=== PATIENT | male | born 1970 | race Caucasian/White ===

== ENCOUNTER → 2019-07-27 | Outpatient (CLI) | payer BC, SELFPAY | END | disposition home or self-care (01) | LOC: LABSPEC 16:23 | PROVIDERS: Referring Provider Otolaryngology; Visit Provider Otolaryngology | DX: J39.1 Other abscess of pharynx (principal) | CPT/HCPCS: 87070 ==

== ENCOUNTER → 2022-07-05 | Outpatient (CLI) | payer BC, SELFPAY ==
[2022-07-05 10:53] LABS: Anion Gap 7 (5-15); BUN 26 mg/dL (7-18); BUN/Creat Ratio 20.6 RATIO (10-20); Calcium,Total 9.4 mg/dL (8.5-10.1); Chloride 102 mmol/L (98-107); Cholesterol 167 mg/dL (200); Creatinine, Serum 1.26 mg/dL (0.70-1.30); EST Glomerular Filtration Rate 64 mL/min (>60); Est Glom Filt Rate - Afr Amer 77 mL/min (>60); Glucose 86 mg/dL (74-106); High Density Lipoprotein 64 mg/dL; Potassium 4.1 mmol/L (3.5-5.1); Sodium Level 137 mmol/L (136-145); Thyroid Stim Hormone (TSH) 1.41 uIU/mL (0.358-3.74); Triglycerides 60 mg/dL; Very Low Density Lipoprotein 12 mg/dL (5-40)
== END | disposition home or self-care (01) ==
LOC: MTLAB 07:01
PROVIDERS: PCP Family Medicine; Referring Provider Family Medicine; Visit Provider Family Medicine
DX: Z00.00 Encounter for general adult medical examination without abnormal findings (principal)
CPT/HCPCS: 36415; 80048; 80061; 84403; 84443

== ENCOUNTER → 2023-07-22 | Outpatient (CLI) | payer BC, SELFPAY ==
[2023-07-22 10:54] LABS: Anion Gap 3 (5-15); BUN 21 mg/dL (7-18); BUN/Creat Ratio 18.6 RATIO (10-20); Calcium,Total 9.2 mg/dL (8.5-10.1); Chloride 107 mmol/L (98-107); Cholesterol 167 mg/dL (200); Creatinine, Serum 1.13 mg/dL (0.70-1.30); EST Glomerular Filtration Rate 72 mL/min (>60); Est Glom Filt Rate - Afr Amer 87 mL/min (>60); Glucose 81 mg/dL (74-106); High Density Lipoprotein 66 mg/dL; Potassium 4.2 mmol/L (3.5-5.1); Sodium Level 138 mmol/L (136-145); Thyroid Stim Hormone (TSH) 1.32 uIU/mL (0.358-3.74); Triglycerides 44 mg/dL; Very Low Density Lipoprotein 9 mg/dL (5-40)
== END | disposition home or self-care (01) ==
PROVIDERS: PCP Family Medicine; Referring Provider Family Medicine; Visit Provider Family Medicine
DX: Z00.00 Encounter for general adult medical examination without abnormal findings (principal)
CPT/HCPCS: 36415; 80048; 80061; 84403; 84443

== ENCOUNTER → 2024-07-16 | Outpatient (CLI) | payer BC, SELFPAY ==
[2024-07-16 10:57] LABS: Anion Gap 7 (5-15); BUN 18 mg/dL (7-18); BUN/Creat Ratio 15.5 RATIO (10-20); Calcium,Total 9.4 mg/dL (8.5-10.1); Chloride 105 mmol/L (98-107); Cholesterol 197 mg/dL (200); Creatinine, Serum 1.16 mg/dL (0.70-1.30); EST Glomerular Filtration Rate 70 mL/min (>60); Est Glom Filt Rate - Afr Amer 84 mL/min (>60); Glucose 91 mg/dL (74-106); High Density Lipoprotein 79 mg/dL; Potassium 4.3 mmol/L (3.5-5.1); Sodium Level 137 mmol/L (136-145); Triglycerides 50 mg/dL; Very Low Density Lipoprotein 10 mg/dL (5-40)
== END | disposition home or self-care (01) ==
PROVIDERS: PCP Family Medicine; Referring Provider Family Medicine; Visit Provider Family Medicine
DX: Z13.220 Encounter for screening for lipoid disorders (principal); R03.0 Elevated blood-pressure reading, without diagnosis of hypertension
CPT/HCPCS: 36415; 80048; 80061

== ENCOUNTER → 2025-01-10 | Outpatient (CLI) | payer BC, SELFPAY ==
--- NOTE | 2025-01-10 16:34 | US_ITS ---
PROCEDURE: TESTICULAR WITH ARTERIAL FLOW 01/10/2025 REASON FOR EXAM: 55-year-old male, testicular swelling. TECHNIQUE: Kiran scale imaging of the scrotal contents. COMPARISON: None. FINDINGS: RIGHT testicle: 6.7 x 3.9 x 4.2 cm Heterogeneous echotexture with ill-defined, hypoechoic lesion measuring at least 3.6 x 3.5 cm. The area demonstrates increased vascularity compared to surrounding testicular parenchyma. Right epididymis: Small right epididymal head cyst. Large right hydrocele. No varicocele. LEFT testicle: 4.8 x 3.6 x 2.6 cm Heterogeneous echotexture with ill-defined, hypoechoic lesion measuring at least 2.5 x 2.0 cm. The area demonstrates increased vascularity compared to surrounding testicular parenchyma. Left epididymis: Small left epididymal head cyst. Small left hydrocele. No varicocele. US/Testicular with Arterial Flow IMPRESSION: 1. 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 Additional consideration includes lymphoma. Correlation with laboratory values recommended. 2. Large right hydrocele. Reading Location: [id number]
== END | disposition home or self-care (01) ==
LOC: US 16:33
PROVIDERS: PCP Family Medicine; Referring Provider Family Medicine; Visit Provider Family Medicine
DX: N50.89 Other specified disorders of the male genital organs (principal)
CPT/HCPCS: 76870; 93976

== ENCOUNTER 2025-01-11 15:34 | Emergency (ER) | payer BC, SELFPAY ==
[2025-01-11 15:37] VITALS: BP 155/90; PULSE 70; RESP 18; TEMP 36.6; O2SAT 100; BMI 26.3
--- NOTE | 2025-01-11 16:33 | CT_ITS ---
EXAM: CT CHEST, ABD, PEL W/CONTRAST 01/11/2025 CLINICAL HISTORY: Testicular masses TECHNIQUE: CT of the chest abdomen and pelvis with contrast with coronal and sagittal reformatted images. 97 cc Isovue-300 contrast FINDINGS: Thoracic aorta and visualized great vessels appear within limits. Mild appearing likely proximal LAD coronary calcification noted. No pericardial or pleural effusion. No axillary, mediastinal, hilar or subcarinal adenopathy. No large central saddle pulmonary embolism. The central airways are patent. Mild dependent basilar appearing atelectasis. The lungs otherwise appear clear. No pulmonary nodule identified. Left larger than right glenoid subchondral appearing cyst formation, osteoarthrosis. A couple small sclerotic posterior bilateral rib foci for example coronal 206 are nonspecific. 8 mm subcapsular low-density focus at the dome of the liver may represent hepatic cyst and is too small to further characterize. The gallbladder, adrenal glands, kidneys, pancreas and spleen appear within limits. Abdominal aorta appears within limits without aneurysm. Retroperitoneal adenopathy anterior to the abdominal aorta and inferior vena cava 2.3 x 1.6 cm axial 66 and 2 x 1.3 cm axial 70. No inguinal, iliac chain or pelvic sidewall adenopathy identified. No bowel dilation or free air. Normal caliber appendix without secondary signs. Diverticulosis without diverticulitis. The bladder appears within limits. No free fluid seen. Prostate appears mildly prominent size. Small sclerotic focus right iliac coronal 87 and left iliac adjacent to the SI joint coronal 89 and 92 are nonspecific. L4-5 spondylosis/discogenic change. L2-3 disc space narrowing. Heterogeneous masslike appearance of asymmetrically larger appearing right testicle and mildly heterogeneous appearing smaller left testicle with surrounding possible large hydrocele on the right and small on the left not well evaluated by CT. CT/CT Chest, Abd, Pel w/Contrast IMPRESSION: Heterogeneous masslike appearance of asymmetrically larger appearing right test icle and mildly heterogeneous appearing smaller left testicle with surrounding possible large hydrocele on the right and small on the left not well evaluated by CT. Retroperitoneal adenopathy anterior to the abdominal aorta and inferior vena ca va 2.3 x 1.6 cm axial 66 and 2 x 1.3 cm axial 70. No inguinal, iliac chain or pelvic sidewall adenopathy identified. A couple small sclerotic posterior bilateral rib foci for example coronal 206 a re nonspecific. Small sclerotic focus right iliac coronal 87 and left iliac adjacent to the SI joint coronal 89 and 92 are nonspe cific. Mild appearing likely proximal LAD coronary calcification noted. Reading Location: [id number]
--- NOTE | 2025-01-11 16:34 | EDS_ITS ---
HPI History of Present Illness Chief Complaint: Male Pain/Injury Detail of Chief Complaint: Testicular masses Informant: patient and PCP Narrative Narrative: Patient presents the emergency department with complaint of testicular masses that were diagnosed this week by his primary care physician. Patient initially presented with testicular pain that started 5 days ago and had an ultrasound as an outpatient that showed masses in both testicles. Dr. Markel Gilbert discussed results with patient and discussed with urology who asked that patient have CT scan of the chest and abdomen and pelvis to evaluate further. Patient sent to the emergency department to have CT imaging. Patient denies weight loss. Denies chest pain or shortness of breath. Denies significant abdominal pain PFSH PFSH Medical History no medical history Allergy/AdvReac Type Severity Reaction Status Date / Time No Known Allergies Allergy Verified 01/11/25 15:36 Family History no significant family his Surgical History no surgical history Social History Smoking Status: Never smoker ROS ROS ED Review of Systems ROS Unobtainable: other Constitutional Constitutional ED: Reports lethargy; Denies chills, fever(s), sweats or weight loss Eyes Eyes: Denies blurry vision, change in vision or diplopia ENT ENT ED: Denies rhinorrhea or sore throat Cardiovascular Cardiovascular: Denies chest pain, orthopnea or racing heartbeat Respiratory/Chest Respiratory/Chest: Denies cough, dyspnea, dyspnea on exertion, orthopnea or sputum Gastrointestinal Gastrointestinal: Denies abdominal pain, diarrhea, nausea or vomiting Genitourinary Genitourinary ED: Reports other Details: Testicular masses ; Denies dysuria, hematuria or urinary frequency Musculoskeletal Musculoskeletal: Denies arthralgias, back pain, myalgias or neck pain Integumentary Denies abscess, Abrasions or rash Neurologic Neurologic: Denies headache(s) or weakness Psychiatric Psychiatric: Denies anxiety, depression or suicidal thoughts Endocrine Endocrinology: Denies polydipsia, polyphagia or polyuria Hematologic/Lymphatic Hematologic/Lymphatic: Denies easy bleeding, easy bruising or lymphadenopathy Allergic/Immunologic Allergic/Immunologic ED: Denies mouth swelling, tongue swelling or urticaria EXAM Physical Exam Const Vital Signs: 01/11/25 15:37 01/11/25 18:07 Temperature 98 F Temperature Source Temporal Pulse Rate 70 78 Respiratory Rate 18 16 Blood Pressure 155/90 H 132/74 H Blood Pressure Mean 111 93 Pulse Ox 100 97 Oxygen Delivery Method Room Air Room Air Positive well nourished and well developed General Appearance ED: well developed and NAD HEENT Reports TM's clear and moist mucous membranes normocephalic and atraumatic; Negative for trauma or tenderness Tympanic Membrane ED: Yes TM's clear Eyes PERRL and EOMs intact bilaterally General Eye ED: Negative for pale conjunctiva or scleral icterus Neck no lymphadenopathy, supple and no JVD General: Negative for tenderness Chest Wall inspection of chest normal and palpation of chest normal Chest: Negative for tenderness Resp normal respiratory effort and clear to auscultation bilaterally Effort and Inspection: Negative for respiratory distress or pain with movement Auscultation: Negative for rhonchi, wheezes or diminished lung sounds Cardio regular rate, regular rhythm, S1 normal heart sound, S2 normal heart sound and no murmurs Peripheral Pulses: pulses 2+ throughout GI normal to inspection, nondistended, normoactive bowel sounds, soft to palpation, non-tender, non-distended and no masses Back/Spine no CVA tenderness and no thoracic nor lumbar tenderness Extremity normal to inspection General Extremety ED: Negative for edema General Extremity: Negative for edema Neuro oriented x3, CN's II-XII intact bilaterally, no sensory deficits noted and gait normal Sensorium / Orientation: awake, alert, oriented to person, oriented to place and oriented to time Motor Exam: strength 5/5 throughout and strength abnormal Psych mental status grossly normal Skin no rashes or lesions noted and no wounds MDM MDM MDM Narrative Medical decision making narrative: Patient presents with recent diagnosis of testicular cancer. PCP requested patient have a CT scan of the chest and abdomen pelvis. This was obtained as he had blood work earlier in the day. CT showed heterogenous masslike appearance of asymmetrically larger appearing right testicle and mildly heterogenous appearing smaller left testicle with surrounding possible large hydrocele on the right and small on the left. Patient also had retroperitoneal adenopathy anterior to the abdominal aorta and inferior vena cava. Patient also had a couple small sclerotic posterior bilateral rib foci for example coronal 206 are nonspecific. Patient also had small sclerotic focus right iliac and left iliac. Patient also had mild appearing likely proximal LAD coronary calcification. Patient was made aware of all findings. He will be discharged to home. He is advised to keep his appointment with urologist. He will need further diagnosis and treatment. Lab Data Attestation: I reviewed the patient's lab results. Radiography Diagnostic Testing: Clinical Impression(s) from Imaging Studies Chest/Abdomen/Pelvis CT 01/11/25 16:33 IMPRESSION: Heterogeneous masslike appearance of asymmetrically larger appearing right testicle and mildly heterogeneous appearing smaller left testicle with surrounding possible large hydrocele on the right and small on the left not well evaluated by CT. Retroperitoneal adenopathy anterior to the abdominal aorta and inferior vena cava 2.3 x 1.6 cm axial 66 and 2 x 1.3 cm axial 70. No inguinal, iliac chain or pelvic sidewall adenopathy identified. A couple small sclerotic posterior bilateral rib foci for example coronal 206 are nonspecific. Small sclerotic focus right iliac coronal 87 and left iliac adjacent to the SI joint coronal 89 and 92 are nonspecific. Mild appearing likely proximal LAD coronary calcification noted. Reading Location: [facility] Discharge Plan Triage Chief Complaint: Male Pain/Injury ED Provider: Edwina Gallegos Dx/Rx/DC Orders Clinical Impression: Testicular cancer Instructions: Testicular Cancer: Diagnosis, Testicular Cancer: Newly Diagnosed, Testicular Cancer Treatment Choices Primary Care Provider: Markel Gilbert Referrals: Markel Gilbert MD [Primary Care Provider] - Activity Restrictions/Additional Instructions: Keep your appointment with urologist. Print Language: Azeri Disposition Disposition: Home, Self Care
[2025-01-11 18:07] VITALS: BP 132/74; PULSE 78; RESP 16; O2SAT 97
== END 2025-01-11 20:00 | disposition home or self-care (01) ==
PROVIDERS: Emergency Provider Emergency Medicine; PCP Family Medicine; Visit Provider Emergency Medicine
DX: C62.90 Malignant neoplasm of unspecified testis, unspecified whether descended or undescended (principal)
CPT/HCPCS: 71260; 74177; 99282; Q9967

== ENCOUNTER → 2025-01-11 | Outpatient (CLI) | payer BC, SELFPAY ==
[2025-01-11 17:26] LABS: Absolute Lymphocyte Count 1.23 X10^3/uL (0.83-4.51); Absolute Neutrophil Count 3.8 X10^3/uL (2.0-7.7); Basophil# 0.03 X10^3/uL; Basophil% 0.5 % (0-1); Eosinophil# 0.02 X10^3/uL; Eosinophils% 0.4 % (0-5); Hematocrit 41.4 % (40-54); Hemoglobin 14.5 g/dL (13.0-16.5); Lymphocyte # 1.23 X10^3/ul (0.83-4.51); Lymphocyte % 22.3 % (19-41); Mean Corpuscular Hgb 30.4 pg (27.0-32.0); Mean Corpuscular Volume 86.8 fL (80-94); Mean Platelet Vol. 9.9 fl (6.2-12.0); Monocyte# 0.44 X10^3/uL; NRBC Flagged by Analyzer 0 % (0-5); Neutrophil # 3.79 X10^3/uL (2.7-7.7); Neutrophil % 68.6 % (47-70); Platelet Count 311 K/mm3 (150-450); RBC Distribution Width CV 13.2 % (11.6-14.6); RBC Distribution Width SD 42.4 fl (35.1-43.9); Red Blood Count 4.77 M/mm3 (4.6-6.2); White Blood Count 5.5 K/mm3 (4.4-11.0)
[2025-01-11 18:43] LABS: Anion Gap 13 (5-15); BUN 19 mg/dL (4-19); BUN/Creat Ratio 16.9 RATIO (10-20); Calcium,Total 9.3 mg/dL (7.6-11.0); Carbon Dioxide 22.2 mmol/L (21.0-32.0); Chloride 104 mmol/L (98-108); Creatinine, Serum 1.15 mg/dL (0.70-1.20); EST Glomerular Filtration Rate 75 (>60); Glucose 89 mg/dL (70-99); LDH 207 U/L (87-241); Potassium 3.8 mmol/L (3.3-5.1); Sodium Level 139 mmol/L (133-145)
[2025-01-13 08:07] LABS: AFP, Tumor Marker 4.1 ng/mL (0.0-8.4)
== END | disposition home or self-care (01) ==
PROVIDERS: PCP Family Medicine; Referring Provider Family Medicine; Visit Provider Family Medicine
DX: N50.89 Other specified disorders of the male genital organs (principal)
CPT/HCPCS: 36415; 80048; 82105; 83615; 85025

== ENCOUNTER → 2025-01-17 | Outpatient (CLI) | payer BC, SELFPAY ==
[2025-01-19 04:07] LABS: HCG BETA-SUBUNIT QUANT. < 1 mIU/mL (0-3)
== END | disposition home or self-care (01) ==
LOC: LAB 14:02
PROVIDERS: PCP Family Medicine; Referring Provider Urology; Visit Provider Urology
DX: C62.10 Malignant neoplasm of unspecified descended testis (principal)
CPT/HCPCS: 36415; 84702

== ENCOUNTER 2025-01-23 12:57 | Day surgery (SDC) | payer BC, SELFPAY ==
[2025-01-23] VITALS (10 sets, daily range): BP systolic 138–174; BP diastolic 77–102; PULSE 69–102; RESP 14–16; TEMP 36.1–36.7; O2SAT 97–98; BMI 26.1
--- NOTE | 2025-01-23 13:05 | EKG12_ITS ---
Test Reason : PRE OP Blood Pressure : */* mmHG Vent. Rate : 65 BPM Atrial Rate : 65 BPM P-R Int : 136 ms QRS Dur : 86 ms QT Int : 388 ms P-R-T Axes : 76 38 60 degrees QTcB Int : 403 ms Normal sinus rhythm Normal ECG No previous ECGs available Confirmed by PALOMA ADAMES, ANDRY ([id number]), research editor BOBBY BAH ([id number]) on 01/24/2025 12:52:38 PM Referred By: Humberto Oswald Confirmed By: ANDRY DOW MD
[2025-01-23] MEDS: 0.9% Normal Saline (1000mL) 1,000 ML 15 ML IV (13:35)
--- NOTE | 2025-01-23 13:42 | PCM.PRE.AN2 ---
ASA Classification* ASA Classification ASA Classification: 2 Assessment & Plan Anesthesia* Anesthesia Assessment Anesthesia Assessment: Discussed sedation and/or anesthesia options, risks, benefits, and alternatives with patient/parents/legal guardian/POA. Questions invited. The patient/parents/legal guardian/POA seems to understand and agrees to proceed with anesthesia plan. Reviewed the physical assessment, medical history, allergy history and patient home medications list prior to surgery/procedure/anesthetic and documented any changes. Performed airway and anesthesia risk assessments. Anesthesia Type Anesthesia Type: General Anesthesia Focused Assessment* Temperature: 98.1 F Pulse Rate: 69 Blood Pressure: 138/93 Respiratory Rate: 14 Pulse Ox: 98 Airway Assessment Mouth opens: >3 cm Mallampati Score: II Focused Labs Anesthesia Preop lab: CBC WBC 5.5 K/mm3 (4.4-11.0) 01/11/25 15:14 01/11/25 RBC 4.77 M/mm3 (4.6-6.2) 01/11/25 15:14 01/11/25 Hgb 14.5 g/dL (13.0-16.5) 01/11/25 15:14 01/11/25 Hct 41.4 % (40-54) 01/11/25 15:14 01/11/25 Plt Count 311 K/mm3 (150-450) 01/11/25 15:14 01/11/25 CHEMISTRY Potassium 3.8 mmol/L (3.3-5.1) 01/11/25 15:14 01/11/25 Sodium 139 mmol/L (133-145) 01/11/25 15:14 01/11/25 BUN 19 mg/dL (4-19) 01/11/25 15:14 01/11/25 Creatinine 1.15 mg/dL (0.70-1.20) 01/11/25 15:14 01/11/25 Glucose 89 mg/dL (70-99) 01/11/25 15:14 01/11/25 TSH 1.32 uIU/mL (0.358-3.74) 07/22/23 07:08 07/22/23 COAG Pre-Assessment Diagnosis/Proposed Procedure Planned Operative Procedure(s): (R) Right Orchiectomy,Radical and Left Orchiectomy, Partial. Intraoperative Ultrasound. 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 When Was Last Pacemaker Check QUESTION #4 FULL TEXT: You/Your Family Experience fever (hyperthermia) with Anesthesia Last Oral Intake Last Oral intake: Last Oral Intake NPO since 09:30 01/23/25 13:21 Meds taken in AM with sips of water? Meds patient instructed to take am of surgery PONV PONV - assistant to the president: PONV - assistant to the president Female No 01/21/25 10:18 HX of Motion Sickness No 01/21/25 10:18 HX of N/V After Surgery No 01/21/25 10:18 Non-Smoker Yes 01/21/25 10:18 Duration of Surgery greater Yes 01/21/25 10:18 than 60 minutes Number of Risk Factors 2 01/21/25 10:18 PONV Score Moderate Risk 01/21/25 10:18 Height & Weight Height & Weight: Anesthesia: Height & Weight Height 5 ft 11 in 01/23/25 13:21 Weight: 85 kg 01/23/25 13:21 Body Mass Index (BMI) 26.1 01/23/25 13:21 Respiratory Assessment Respiratory Assessment - assistant to the president: Respiratory Tract Infection Hx - assistant to the president Hx Respiratory Tract Infection No 01/21/25 10:18 STOP Sleep Apnea STOP Sleep Apnea - assistant to the president: STOP Sleep Apnea - assistant to the president Hx Hypertension No 01/21/25 10:18 Hx Sleep Apnea No 01/21/25 10:18 CPAP BIPAP Do you snore loudly (louder Yes 01/21/25 10:18 than talking or can be heard Do you often feel tired/ No 01/21/25 10:18 fatigued/ sleepy during daytime? Has anyone observed you stop No 01/21/25 10:18 breathing during sleep? STOP Results Negative 01/21/25 10:18 QUESTION #5 FULL TEXT : Do you snore loudly (louder than talking or can be heard through closed doors)? Tobacco Use History Tobacco Use History - assistant to the president: Tobacco Use History - assistant to the president Tobacco Use Smoking Status Never smoker 01/21/25 10:18 Hx Tobacco Use No 01/21/25 10:18 Years Smoking Packs Smoked per Day Smoking Cessation Date was within the last 15 years Hx Smoking Cessation Date Hx Smoking Cessation Counseling Hematologic Medial History Hematologic Hx - assistant to the president: Hematologic Medical Hx - personal financial advisor Hx of Blood Transfusion No 01/21/25 10:18 Hx of Transfusion in last 3 No 01/21/25 10:18 Months Date of Last Transfusion (if within last 3 months) Ever experience any problems No 01/21/25 10:18 with transfusion(s)? Specify any problems Hx of Preganancy in last 3 N/A 01/21/25 10:18 Months Nurse Filling Out Transfusion JZOLLDIVINA 01/21/25 10:18 & Questions: Date: 01/21/25 01/21/25 10:18 Time: 10:20 01/21/25 10:18 Patient unable to answer at this time (ie. confused, unrespo /Reproduction History /Reproductive History - assistant to the president: /Reproductive Hx- assistant to the president Hx Now No 01/21/25 10:18 Gestational Age (in weeks): EDC: Hx Hx Para Hx Section SAB No 01/21/25 10:18 Active Medications Active Medications: Current Medications Generic Name Dose Route Start Last Admin Trade Name Freq PRN Reason Stop Dose Admin Cefazolin Sodium 2 gm/ N/A 20 mls @ 400 mls/hr 01/23/25 15:00 IV 01/23/25 15:02 PREOP ONE Sodium Chloride 1,000 mls @ 15 mls/hr 01/23/25 13:10 01/23/25 13:35 IV 15 mls/hr .Q48H XAVIER Administration PFSH Medical History Wears hearing aid Wears glasses Cancer Prostate disease Non-smoker Home Medications ?Medication ?Instructions ?Recorded ?Last Taken ?Type NK 01/21/25 Unknown History Allergy/AdvReac Type Severity Reaction Status Date / Time No Known Allergies Allergy Verified 01/23/25 13:18 Surgical History Hx of knee surgery Social History Smoking Status: Never smoker Review of Systems (Anesthesia) ROS Narrative System reviewed and no additional complaints, except as documented.
--- NOTE | 2025-01-23 15:00 | TEST_PTH ---
PATIENT: TERESITA [place]ILL [place] [facility] [place][id number] AGE/SX: 55/M ROOM: RE01/23/[address]: Dr. Humberto Oswald MD : 1970 BED: DIS: 01/23/2025 SPEC #: [id number] RECD: 01/24/25 09:06 STATUS: ALIN CAMILO #: [id number] LUCHO: 01/23/25 15:[address]: Humberto Oswald DEPT: SURGICAL PATHOLOGY RECD BY: Sebastian Carmen ENTERED: 01/24/25 09:07 SP TYPE: TESTICLE OTHR DR: Dr. Markel Gilbert MD Tissues: A - Testis, NOS B - HYDROCELE C - Testis, NOS Procedures: Surgery Specimen Level II Surgery Specimen Level HEADER OPERATION: Right orchiectomy, radical and left orchiectomy PRE-OP DIAGNOSIS: Testicle mass TISSUE SUBMITTED: A- Right radical orchiectomy, B- Right separate hydrocele sac, C- Left radical orchiectomy MICROSCOPIC DIAGNOSIS A. Right testicle, mass, radical orchiectomy: * Atypical B-cell lymphoid proliferation suspicious for lymphoma (See comment) * Adrenal cortical rest involving the spermatic cord B. Right scrotum, hydrocele sac, removal: * Fibromembranous tissue consistent with hydrocele C. Left testicle, mass, radical orchiectomy: * Atypical B-cell lymphoid proliferation suspicious for lymphoma (See comment) COMMENT Immunohistochemical staining is performed (blocks A4 & C2) and shows positive reactivity with CD45 and CD20. The following immunostains are negative: Oct3/4, CD30, PLAP, CD117, D240 and AE1/AE3. The findings support the diagnosis. The slides are sent to [facility], division of hematopathology for further consultation and classification and the results will be issued as an addendum. MICROSCOPIC DESCRIPTION Slides are reviewed. GROSS DESCRIPTION A. Received in formalin in a container labeled with the patient's name, date of , and right: Radical orchiectomy is a 117.4 g radical orchiectomy specimen. The spermatic cord is 7.5 cm in length with a diameter ranging from 1.8 cm to 3.5 cm. The testis and epididymis are 7.6 x 4.5 x 4.4 cm. The hardy-mahan tunica vaginalis is smooth and freely movable over the testis proper (inked black). A 5.4 x 2.0 cm previous linear incision is present on the tunica vaginalis with exposed white-mahan, smooth tunica albuginea (inked blue). The specimen is bivalved to reveal that the testis proper (7.4 x 4.0 x 3.8 cm) is notable for a hardy-pink, ill-defined, and nonencapsulated mass. Mass measurement: 4.1 x 3.7 x 3.2 cm. It is situated to pertinent structures as follows:Spermatic cord margin: 9.8 cmEpididymis: 2.0 cmRete testes: 1.3 cmTunica albuginea: AbutsTunica vaginalis: 0.1 cm The remaining testicular parenchyma is hardy-orange and spongy. The epididymis (4.5 x 1.3 cm) exhibits uninvolved, hardy and spongy surfaces with an adjacent 1.0 x 1.0 cm thin-walled cystic structure. The cystic areas filled with white, thick and creamy material. The remaining spermatic cord is serially sectioned to reveal a 0.2 x 0.2 x 0.2 cm hardy-orange and indurated nodule situated 4.5 cm from the mass and 3.0 cm from the margin. No other lesions are grossly noted. Emergency Medicine Medical Director sections:A1. Spermatic cord margin, en faceA2-3. Mass to tunica albuginea and vaginalisA4. Mass to exposed tunica albuginea at disrupted vaginalisA5. Mass to rete testes/rheumatic cordA6. Mass to spermatic cordA7. Mass to uninvolvedA8. Uninvolved testicular parenchyma with epididymis and adjacent cystic structureA9. Spermatic cord with nodule and uninvolved cross-section B. Right: Separate hydrocele sack is an 11.5 x 2.2 x 0.5 submitted fragment of pink-mahan, rubbery, and edematous soft tissue. Serial sections reveal hardy-pink, spongy cut surfaces. No distinct saccular-like structures identified. Emergency Medicine Medical Director sections are submitted in B1-2. C. Received in formalin in a container labeled with the patient's name, date of , and left: Radical orchiectomy is a 51.6 g radical orchiectomy specimen. The spermatic cord is 4.0 cm in length with an average diameter of 2.2 cm. The testis and epididymis are 5.5 x 4.2 x 3.4 cm. The tunica vaginalis fascial layer appears grossly absent. There is white-mahan, smooth tunica albuginea (inked black). The specimen is bivalved to reveal that the testis proper (5.2 x 4.0 x 3.3 cm) is notable for an ill-defined, pale hardy-pink, nonencapsulated, and somewhat indurated mass.Mass measurement: 2.3 x 2.3 x 2.2 cm. It is situated to pertinent structures as follows: Spermatic cord margin: 5.8 cmEpididymis: 1.3 cmRete testes: 0.7 cmTunica albuginea: Abuts The remaining testicular parenchyma is hardy-orange and spongy. The epididymis (approximately 3.5 x 0.8 cm) exhibits uninvolved, hardy and spongy surfaces. No other overt lesion is identified. Emergency Medicine Medical Director sections:C1. Spermatic cord margin, en faceC2-3. Mass abutting tunica albugineaC4. Mass to rete testesC5-6. Mass to epididymis/spermatic cordC7. Mass to uninvolved parenchymaC8. Uninvolved epididymis and testicular parenchymaC9. Uninvolved spermatic cord cross-sections [facility] 01-24-2025 CPT:[id number] ADDENDUM ADDENDUM ADDENDUM ADDENDUM ADDENDUM ADDENDUM ADDENDUM ADDENDUM ADDENDUM ADDENDUM ADDENDUM ADDENDUM ADDENDUM ADDENDUM ADDENDUM ADDENDUM ADDENDUM ADDENDUM ADDENDUM ADDENDUM ADDENDUM ADDENDUM ADDENDUM ADDENDUM ADDENDUM ADDENDUM ADDENDUM ADDENDUM ADDENDUM ADDENDUM ADDENDUM ADDENDUM ADDENDUM ADDENDUM ADDENDUM ADDENDUM ADDENDUM ADDENDUM ADDENDUM ADDENDUM ADDENDUM ADDENDUM 02/18/2025 13:57 ADDENDUM 02/18/2025 13:57 ADDENDUM 02/18/2025 13:57 ADDENDUM 02/18/2025 13:57 ADDENDUM 02/18/2025 13:57 This addendum is added to incorporate an outside pathology consultation report. The case was examined at [facility] (#[id number]) and the following diagnosis was rendered. PATHOLOGY DIAGNOSIS: A. Right testicle mass, radical orchiectomy: Aggressive B-cell lymphoma. See comment. B. Right scrotum, hydrocele sac, removal: Dense fibrous tissue. C. Left testicle mass, radical orchiectomy: Aggressive B-cell lymphoma. See comment. COMMENT: Combined morphologic and IHC/FILIBERTO findings are consistent with aggressive B-cell lymphoma. The FILIBERTO for DAVID is negative. Molecular analysis of the IgH and NGS as well as FISH analysis with probes designed to detect rearrangement of BCL2, BCL6 and c-MYC genes are progress. MOLECULAR STUDIES REPORT: A. 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 No BCL2 or BCL6 rearrangements are detected. In large B-cell lymphoma, MYC rearrangements are associated with adverse prognostic features in most studies. BCL2 REARRAGEMENT: NEGATIVE BCL6 REARRAGMENT: NEGATIVE MYC REARRAGEMENT: POSTITIVE Please see complete above mentioned consultation report in EMR
--- NOTE | 2025-01-23 15:27 | PCM.HP.STD ---
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 I don't think right testicle is amendable to partial. PFSH Medical History Wears hearing aid Wears glasses Cancer Prostate disease Non-smoker Home Medications ?Medication ?Instructions ?Recorded ?Last Taken ?Type oxycodone 5 mg tablet 5 mg PO Q6H PRN pain 7 days #14 01/23/25 Unknown Rx tabs Allergy/AdvReac Type Severity Reaction Status Date / Time No Known Allergies Allergy Verified 01/23/25 13:18 Surgical History Hx of knee surgery Social History Smoking Status: Never smoker Vital Signs Vital Signs Vital Signs: 01/23/25 13:21 01/23/25 13:21 01/23/25 13:42 Temperature 98.1 F 98.1 F Temperature Source Temporal Pulse Rate 69 69 Respiratory Rate 14 14 Respiratory Pattern Normal Blood Pressure 138/93 H 138/93 H Blood Pressure Mean 108 Blood Pressure Source Monitor Blood Pressure Position Semi-Fowlers Blood Pressure Location Left Arm Pulse Ox 98 98 Oxygen Delivery Method Room Air Weight Weight: 85 kg Body Mass Index (BMI) 26.1
--- NOTE | 2025-01-23 15:30 | DCINST_ITS ---
Discharge Instructions Diet Discharge Diet: No restrictions and Soft diet DC O2, CPAP, BIPAP needs Home O2 Discharge instructions: No Dressing / Incision Discharge Activity: May Not Drive and May Shower Return to work on:: 01/28/25 May shower in (days): 1 Lifting Restrictions: no heavy lifting. Dressing / Incision Call your doctor if your incision/area has: Continuous Slow Oozing Call your doctor if you observe: Fever of 101 or Higher Suture Line Care: Avoid Pulling/Pushing and Avoid Pinching/Bending Cleanse incision/area with: Keep Dressing Clean & Dry Follow Up Care Please Follow Up With: Humberto Oswald MD When: call for appt next week for post op check Test Results: Test results from this visit will be discussed in further detail at your follow- up appointment, if applicable. Discharge Plan Admission Primary Reason for Your Visit: removal of testicle masses Attending Provider: Humberto Oswald Primary Care Provider: Markel Gilbert Instructions Print Language: [place] Discharge Orders/Prescriptions Prescriptions: New oxycodone 5 mg tablet 5 mg PO Q6H PRN (Reason: pain) 7 Days Qty: 14 0RF Referrals / Follow Up: Humberto Oswald MD [Med Staff - Active Staff] - Markel Gilbert MD [Primary Care Provider] - Disposition Disposition (needs filled in before D/C Order can be placed): Home, Self Care
[2025-01-23] MEDS: Cefazolin 2 GM in Syringe IV (15:32)
[2025-01-23] MEDS: Bupivacaine Mpf 0.5% 30 ML VIAL (16:05)
--- NOTE | 2025-01-23 16:44 | OP.PCM_ITS ---
Operative Report (Standard) Operative Information Date of Procedure: 01/23/25 Pre-Operative Diagnosis: Bilateral testicle masses, enlarged retroperitoneal lymph nodes Post-Operative Diagnosis: The same Surgery/Procedure Performed: Right radical orchiectomy, left radical orchiectomy manager distribution center: No Type of Anesthesia: General RN Documented Start/Stop Times: Operation Date: 01/23/25 15:00 Case Time Into Pre-Op 01/23/25 13:06 Out of Pre-Op 01/23/25 15:23 Anesthesia Start 01/23/25 15:26 Into Room 01/23/25 15:26 Procedure Start 01/23/25 15:39 Procedure Start Time: 15:39 Procedure Stop Time: 16:45 Select all DRAINS/GRAFTS/IMPLANTS that apply: None Estimated Blood Loss: 5cc Specimen collected: Yes Description of specimen(s) removed: Left radical orchiectomy, right radical orchiectomy, right hydrocele sac separate Description of surgery: 55-year-old male who presented to the office with bilateral synchronous large firm hard testicle masses by ultrasound and by exam. He has had sudden onset of swelling in the right testicle on exam he can feel light large hydrocele the ultrasound confirms a large mass in the testicle and then in the left testicle there was also a mass in the left testicle this is very suspicious for germ cell tumor. CT scan was done demonstrating large retroperitoneal lymph nodes spoke to oncology he recommended bilateral orchiectomy spoke to the patient about the possibility of doing a left partial orchiectomy if feasible. Saw the patient today in the preoperative setting I did an exam again getting a large right mass consistent with the right hydrocele with mass, the left side the mass appeared larger on the left side today renal proceed with a right radical kidney ectomy will see if we can do a left orchiectomy., Or partial orchiectomy in the left side Patient was taken back to the operating room after smooth induction of anesthesia he was placed in supine position started off with the right side made a fairly large generous incision in the right inguinal area dissected down to the right spermatic cord opened up the cord and then delivered the large mass hydrocele mass and testicle mass from the scrotum up pushed to clamps on the spermatic cord this was transected there was there was a separate hydrocele sac off the cord this was excised separately and sent off as a separate specimen there was a small puncture in the scrotal skin I closed this with 3 chromic stitches. We then cut the cord put a silk stitch on the cord and then suture- ligated the cord with 0 chromic stitches. I then closed the anterior fascia close spermatic area and then I closed the Owen's fascia and then closed the skin with a running stitch. We then went to the left side again examination of the left testicle appeared larger than when I just examined him last week. Made a small incision in the left inguinal area I dissected out down to the left inguinal canal opened up the anterior portion of the endocrine the canal and then was able to deliver the left testicle mass we then opened up the tunica of the testicle to examine it you can palpate a hard mass right in the middle of the testicle by ultrasound the mass was now encompassing more than half the testicle if I did a partial orchiectomy in the left side I would only be able to say but not been of a fingertip of the upper pole of the testicle which I do not think would be either safe nor viable and not use not worth the risk of recurrence in the area therefore I made the decision to proceed with a left radical orchiectomy since a partial orchiectomy was not deemed feasible and safe because of the mass is now encompassing more than 50% of the testicle I was only going to be able to say but less than 20% of the testicle so 2 clamps were placed on the spermatic cord transected the spermatic cord I then suture-ligated spermatic cord to use a chromic stitch and also a silk stitch in the spermatic cord we irrigated the area we closed the anterior canal of the spermatic cord and then closed Owen's fascia and then closed the skin with subcuticular stitches minimal bleeding during the case incision was given lidocaine for local control anesthetic was reversed he was extubated taken back to PACU in good condition follow-up in 1 week for postoperative check and then will refer him to medical oncology and will await the tissue results from the radical orchiectomy bilaterally. Surgical Findings: Right testicle removed completely extra hydrocele sac also removed, left testicle opened up examined with ultrasound found to have the mass right in the center of the left testicle left partial orchiectomy not feasible so proceeded with left orchiectomy Complications Complications: No Admit VTE Documentation VTE Present on Admission: No VTE Mechan Device Prophylaxis: SCD's VTE Pharm Prophylaxis ordered?: No
--- NOTE | 2025-01-23 16:57 | PCM.POST.ANE ---
Anesthesia: Postop Eval I Current Vital Signs Temperature: 97.6 F Pulse Rate: 102 Blood Pressure: 156/102 Respiratory Rate: 16 Pulse Ox: 97 Oxygen Delivery Method: Room Air Assessment Airway patent: Yes Spontaneous unlabored respirations: Yes Mental status: Awake and Calm nausea: No Vomiting: No Anesthesia Complication: No Fluid Hydration Crystalloid volume administer (ml): 1,000 Total IV fluid infused: 1,000 Progress Note Anesthesia document: Postop Eval 1 completed: Yes
[2025-01-23] MEDS: Ketorolac 15 MG/ML Vial IV (17:13)
--- NOTE | 2025-01-23 17:16 | POSTOPAN2_ITS ---
Anesthesia Postop Eval I Sum Postop Eval Completion status Anesthesia document: Postop Eval 1 completed: Yes Anesthesia Postop Eval I Summary Anesthesia Postop Eval I Summary: Anesthesia Postop Eval I: Assessment Summary Airway patent Yes 01/23/25 16:58 [email or web address] Spontaneous unlabored Yes 01/23/25 16:58 [email or web address] respirations Mental status Awake,Calm 01/23/25 16:58 [email or web address] Angel nausea No 01/23/25 16:58 [email or web address] Vomiting No 01/23/25 16:58 [email or web address] [email or web address] Anesthesia Postop Eval I: Fluid Summary Crystalloid volume administer 1,000 01/23/25 16:58 [email or web address] (ml) Colloids volume administered ( ml) Blood Product volume administered (ml) Total IV fluid infused 1,000 01/23/25 16:58 [email or web address] Anesthesia Postop Eval I: Summary Notes Anesthesia Complication No 01/23/25 16:58 [email or web address] Anesthesia Complication Comment: Post-operative progress note Anesthesia: Postop Eval II Evaluation Mental status: Awake Pain Level: 3 nausea: No Vomiting: No
--- NOTE | 2025-01-23 17:16 | PCM.POSTANE2 ---
Anesthesia Postop Eval I Sum Postop Eval Completion status Anesthesia document: Postop Eval 1 completed: Yes Anesthesia Postop Eval I Summary Anesthesia Postop Eval I Summary: Anesthesia Postop Eval I: Assessment Summary Airway patent Yes 01/23/25 16:58 SUCTION PLATE [email or web address] Spontaneous unlabored Yes 01/23/25 16:58 SUCTION [email or web address] respirations Mental status Awake,Calm 01/23/25 16:58 SUCTION [email or web address] [email or web address] Angel nausea No 01/23/25 16:58 SUCTION PLATE [email or web address] Vomiting No 01/23/25 16:58 SUCTION PLATE [email or web address] [email or web address] Anesthesia Postop Eval I: Fluid Summary Crystalloid volume administer 1,000 01/23/25 16:58 SUCTION PLATE CARRIER [email or web address] (ml) Colloids volume administered ( ml) Blood Product volume administered (ml) Total IV fluid infused 1,000 01/23/25 16:58 SUCTION PLATE CARRIER [email or web address] Anesthesia Postop Eval I: Summary Notes Anesthesia Complication No 01/23/25 16:58 SUCTION PLATE CARRIER [email or web address] Anesthesia Complication Comment: Post-operative progress note Anesthesia: Postop Eval II Evaluation Mental status: Awake Pain Level: 3 nausea: No Vomiting: No
[2025-01-23] MEDS: oxyCODONE 5 MG Tablet PO (17:46)
[2025-01-23] MEDS: Acetaminophen 325 MG Tablet 650 MG PO (17:47)
== END 2025-01-23 18:05 | disposition home or self-care (01) ==
LOC: SDC 12:57 → AC 12:59
PROVIDERS: PCP Family Medicine; Referring Provider Urology; Visit Provider Urology
PROC: (CPT 54530; principal; 2025-01-23 14:45)
DX: N43.3 Hydrocele, unspecified (principal); N50.89 Other specified disorders of the male genital organs
CPT/HCPCS: 54530; 76998; 88302; 88309; 93005; J2405